=== PATIENT | female | born 1975 | race American Indian/Alaskan Native ===

== ENCOUNTER 2016-08-31 09:30 | Emergency (ER) | payer MEDICAID ==
[2016-08-31 09:45] VITALS: BMI 29.2
[2016-08-31 09:49] VITALS: TEMP 97.7; O2SAT 98
--- NOTE | 2016-08-31 10:03 | ED PDOC ---
Arrival/HPI - General Chief Complaint: Lower Extremity Problem/Injury Time Seen by Provider: 08/31/16 09:38 Historian: Patient - History of Present Illness Narrative History of Present Illness (Text): 08/31/16 09:50 A 40 year old female, who denies any past medical history, presents to the emergency department complaining of right knee pain after hitting her right knee to metal object at home yesterday. Patient reports having knee pain for almost two years now, after a box had fallen on her knee while she had been at work. Patient also notes she hasn't taken pain medications but applies ice on area. Patient denies any other bodily pain, injury or any other complaints at this time. Time/Duration: 24 hours Symptom Onset: Sudden Symptom Course: Unchanged Context: Home Associated Symptoms (Text): none Past Medical History - Provider Review Nursing Documentation Reviewed: Yes - Infectious Disease Hx of Infectious Diseases: None - Psychiatric Hx Substance Use: No - Anesthesia Hx Anesthesia: No Family/Social History - Physician Review Nursing Documentation Reviewed: Yes Family/Social History: No Known Family HX Smoking Status: Never Smoked Hx Alcohol Use: No Hx Substance Use: No Allergies/Home Meds Allergies/Adverse Reactions: Allergies No Known Allergies Allergy (Verified 08/31/16 09:45) Review of Systems - Physician Review All systems were reviewed & negative as marked: Yes - Review of Systems Constitutional: Normal Eyes: Normal ENT: Normal Respiratory: Normal. absent: SOB Cardiovascular: Normal. absent: Chest Pain Gastrointestinal: Normal. absent: Nausea Genitourinary Female: Normal Musculoskeletal: Other (R knee pain) Skin: Normal Neurological: Normal. absent: Headache, Dizziness Endocrine: Normal Hemo/Lymphatic: Normal Psychiatric: Normal Physical Exam Vital Signs Reviewed: Yes Vital Signs Temp Pulse Resp BP Pulse Ox 08/31/16 09:46 97.7 F 73 19 128/90 98 Temperature: Afebrile Blood Pressure: Normal Pulse: Regular Respiratory Rate: Normal Appearance: Positive for: Well-Appearing, Non-Toxic, Comfortable Pain Distress: None Mental Status: Positive for: Alert and Oriented X 3 - Systems Exam Head: Present: Atraumatic, Normocephalic Pupils: Present: PERRL Extroacular Muscles: Present: EOMI Conjunctiva: Present: Normal Mouth: Present: Moist Mucous Membranes Neck: Present: Normal Range of Motion Respiratory/Chest: Present: Clear to Auscultation, Good Air Exchange. No: Respiratory Distress, Accessory Muscle Use Cardiovascular: Present: Regular Rate and Rhythm, Normal S1, S2. No: Murmurs Abdomen: Present: Normal Bowel Sounds. No: Tenderness, Distention, Peritoneal Signs Upper Extremity: Present: Normal Inspection. No: Cyanosis, Edema Lower Extremity: Present: Normal ROM, Other (ecchymosis below patella; tender, little swelling; no laceration/abrasion) Neurological: Present: GCS=15, CN II-XII Intact, Speech Normal Skin: Present: Warm, Dry, Normal Color. No: Rashes Psychiatric: Present: Alert, Oriented x 3, Normal Insight, Normal Concentration Medical Decision Making ED Course and Treatment: 08/31/16 10:00 Impression: A 40 year old female with Right knee pain. Differential Diagnosis include but are not limited to: knee pain r/o fracture and strain Plan: -- Radiology knee w Right patella -- Toradol -- Reassess and disposition Progress Notes: Radiology R knee patella: Creator : Jamie Griggs MD IMPRESSION: Normal radiographs of the right knee. 08/31/16 11:11 Patient's Xray is negative for fracture. Patient did twist her leg but will consider a strain. History provide and exam most consistent with knee contusion. Knee oz wrap applied. Crutches given for support. She will f/u with the clinic. She was also given a referral for orthopedics. - RAD Interpretation Radiology Orders: 08/31/16 09:57 KNEE W PATELLA RIGHT 3 VIEW [RAD] Stat - Medication Orders Current Medication Orders: Discontinued Medications Ketorolac Tromethamine (Toradol) 60 mg IM STAT STA Stop: 08/31/16 09:58 Last Admin: 08/31/16 10:23 Dose: 60 mg - Scribe Statement The provider has reviewed the documentation as recorded by the Scribe Susan Hahn All medical record entries made by the Scribe were at my direction and personally dictated by me. I have reviewed the chart and agree that the record accurately reflects my personal performance of the history, physical exam, medical decision making, and the department course for this patient. I have also personally directed, reviewed, and agree with the discharge instructions and disposition. Disposition/Present on Arrival - Present on Arrival Any Indicators Present on Arrival: No History of DVT/PE: No History of Uncontrolled Diabetes: No Urinary Catheter: No History of Decub. Ulcer: No History Surgical Site Infection Following: None - Disposition Have Diagnosis and Disposition been Completed?: Yes Diagnosis: Knee contusion Disposition: HOME/ ROUTINE Disposition Time: 11:13 Patient Plan: Discharge Patient Problems: Current Active Problems Problem Status Onset Knee contusion Acute Condition: IMPROVED Discharge Instructions (ExitCare): Knee Pain (ED) Additional Instructions: Ms Gee, thank you for letting us take care of you today. Your provider was Dr. Reis You were treated for Knee Contusion. The emergency medical care you received today was directed at your acute symptoms. If you were prescribed any medication, please fill it and take as directed. It may take several days for your symptoms to resolve. Return to the Emergency Department if your symptoms worsen, do not improve, or if you have any other problems. Please contact your doctor or call one of the physicians/clinics you have been referred to that are listed on the Patient Visit Information form that is included in your discharge packet. Bring any paperwork you were given at discharge with you along with any medications you are taking to your follow up visit. Our treatment cannot replace ongoing medical care by a primary care provider (PCP) outside of the emergency department. Thank you for allowing the [facility] team to be part of your care today. If you had an X-Ray or CT scan: A Radiologist will review the ED reading if any change in treatment is needed we will contact you. If you had a blood, urine, or wound culture: It will take several days for the results, if any change in treatment is needed we will contact you. If you had an STI test: It will take 48 hours for the results. Please call after 1 week if you have not heard back. Prescriptions: Naproxen 500 mg PO BID PRN #30 tab PRN Reason: Pain, Moderate (4-7) Referrals: Marisela Avery MD [Staff Provider] - Follow up with primary [facility] [place] [Outside] - Follow up with primary Forms: Air Visits Discharge (Indonesian), WORK NOTE
--- NOTE | 2016-08-31 10:34 | RAD ---
PROCEDURE: Right Knee Radiographs. HISTORY: pain with injury r/o fx COMPARISON: None. FINDINGS: BONES: Normal. No fracture. JOINTS: Normal. No osteoarthritis. JOINT EFFUSION: None. OTHER FINDINGS: None. IMPRESSION: Normal radiographs of the right knee.
[2016-08-31 11:33] VITALS: BP 126/86; PULSE 69; RESP 18
== END 2016-08-31 11:35 | disposition home or self-care (01) ==
LOC: ED 09:30
DX: S80.01XA Contusion of right knee, initial encounter (principal); W22.8XXA Striking against or struck by other objects, initial encounter; Y92.009 Unspecified place in unspecified non-institutional (private) residence as the place of occurrence of the external cause
CPT/HCPCS: 73562; 96372; 99284; J1885

== ENCOUNTER 2016-10-01 09:45 | Emergency (ER) | payer MEDICAID ==
[2016-10-01 09:45] VITALS: BMI 29.2
[2016-10-01 10:14] VITALS: RESP 18; TEMP 98.3; O2SAT 100
[2016-10-01] MEDS ORDERED: Promethazine/Cod 6.25mg-10mg/5ml Syr UD PO STA (10:45)
[2016-10-01] MEDS ORDERED: Albuterol-Ipratrop 3 mg / 0.5 (3 ml) UD IH STA (10:45)
--- NOTE | 2016-10-01 10:46 | ED PDOC ---
Arrival/HPI - General Chief Complaint: Cough, Cold, Congestion Time Seen by Provider: 10/01/16 10:43 Historian: Patient - History of Present Illness Narrative History of Present Illness (Text): 10/01/16 10:43 This 40 yo female presents to this ED c/o cough, congestion, and fever x 7 days. Denies sob, cp, recent travel, sick contact, abdominal pain, dizziness, rash, urinary symptoms, n/v/d, or abnormal gait. Time/Duration: 1 week Context: Home Past Medical History - Provider Review Nursing Documentation Reviewed: Yes - Infectious Disease Hx of Infectious Diseases: None - Psychiatric Hx Substance Use: No - Anesthesia Hx Anesthesia: No Family/Social History - Physician Review Nursing Documentation Reviewed: Yes Family/Social History: No Known Family HX Smoking Status: Never Smoked Hx Alcohol Use: No Hx Substance Use: No Allergies/Home Meds Allergies/Adverse Reactions: Allergies No Known Allergies Allergy (Verified 10/01/16 10:15) Review of Systems - Review of Systems Constitutional: Fevers. absent: Fatigue, Weight Change Eyes: Normal ENT: Normal. absent: Sore Throat, Rhinorrhea Respiratory: Cough. absent: SOB, Sputum, Wheezing Cardiovascular: Normal Gastrointestinal: Normal. absent: Abdominal Pain, Nausea, Vomiting Genitourinary Female: Normal. absent: Dysuria, Frequency, Hematuria, Vaginal Bleeding, Vaginal Discharge Musculoskeletal: absent: Back Pain, Neck Pain, Myalgias Skin: Normal. absent: Rash Neurological: Normal. absent: Headache, Dizziness, Focal Weakness, Gait Changes , Speech Changes Endocrine: Normal Hemo/Lymphatic: Normal Psychiatric: Normal Physical Exam Vital Signs Temp Pulse Resp BP Pulse Ox 10/01/16 12:17 67 18 132/81 100 10/01/16 10:12 98.3 F 69 18 136/86 100 Temperature: Afebrile Blood Pressure: Normal Pulse: Regular Respiratory Rate: Normal Appearance: Positive for: Well-Appearing, Non-Toxic, Comfortable Pain Distress: None Mental Status: Positive for: Alert and Oriented X 3 - Systems Exam Head: Present: Atraumatic, Normocephalic Pupils: Present: PERRL Extroacular Muscles: Present: EOMI Conjunctiva: Present: Normal Mouth: Present: Moist Mucous Membranes Pharnyx: Present: Normal. No: ERYTHEMA, EXUDATE, TONSILS ENLARGED Neck: Present: Normal Range of Motion. No: Meningeal Signs Respiratory/Chest: Present: Clear to Auscultation, Good Air Exchange. No: Respiratory Distress, Accessory Muscle Use, Wheezes, Decreased Breath Sounds, Rales, Retracting, Rhonchi Cardiovascular: Present: Regular Rate and Rhythm, Normal S1, S2. No: Murmurs Abdomen: Present: Normal Bowel Sounds. No: Tenderness, Distention, Peritoneal Signs Back: Present: Normal Inspection. No: CVA Tenderness Upper Extremity: Present: Normal Inspection, Normal ROM, NORMAL PULSES, Neurovascularly Intact, Capillary Refill < 2s. No: Cyanosis, Edema Lower Extremity: Present: Normal Inspection, NORMAL PULSES, Normal ROM, Capillary Refill < 2 s. No: Edema, CALF TENDERNESS Neurological: Present: GCS=15, CN II-XII Intact, Speech Normal, Motor Func Grossly Intact, Normal Sensory Function, Normal Cerebellar Funct, Gait Normal Skin: Present: Warm, Dry, Normal Color. No: Rashes Psychiatric: Present: Alert, Oriented x 3, Normal Insight, Normal Concentration Medical Decision Making ED Course and Treatment: 10/01/16 12:05 Re-evaluation. Patient feels better. Discussed results and plan with patient who expresses understanding. All questions answered and there is agreement with the plan to discharge home with instructions. Patient stable for discharge. Return if symptoms persist or worsen Patient was treated with Duoneb, and cough medication. Patient requested Medrol dose pack because she has had this medication in the past, and it helps relief her symptoms. Patient was explained the side effects if she takes Medrol Dose Pack, including AVN, DM, osteoporosis, adrenal gland complication, liver disease, glaucoma. She still insisted to have Medrol Dose Pack. She also requested a Z-Pack. Re-evaluation Time: 12:05 Reassessment Condition: Re-examined, Improved - RAD Interpretation Narrative RAD Interpretations (Text): 10/01/16 12:05 Chest x-rays: NAD Radiology Orders: 10/01/16 10:44 CHEST TWO VIEWS (PA/LAT) [RAD] Stat - Medication Orders Current Medication Orders: Discontinued Medications Albuterol/Ipratropium (Duoneb 3 Mg/0.5 Mg (3 Ml) Ud) 3 ml IH STAT STA Stop: 10/01/16 10:46 Last Admin: 10/01/16 11:05 Dose: 3 ml Promethazine HCl/Codeine (Phenergan/Codeine Oral Syrup) 5 ml PO STAT STA Stop: 10/01/16 10:46 Last Admin: 10/01/16 11:06 Dose: 5 ml Disposition/Present on Arrival - Present on Arrival Any Indicators Present on Arrival: No History of DVT/PE: No History of Uncontrolled Diabetes: No Urinary Catheter: No History of Decub. Ulcer: No History Surgical Site Infection Following: None - Disposition Have Diagnosis and Disposition been Completed?: Yes Diagnosis: Upper respiratory infection Disposition: HOME/ ROUTINE Disposition Time: 12:06 Patient Plan: Discharge Condition: GOOD Discharge Instructions (ExitCare): Upper Respiratory Infection (ED) Additional Instructions: Call private doctor for follow up visit in 1-2 days. Take medication as instructed. Take antibiotic as requested only if symptoms worsen or persists. Return to emergency if symptoms worsen. Prescriptions: Albuterol HFA [Ventolin HFA 90 mcg/actuation (8 g)] 2 puff IH [id number] PRN #120 puff PRN Reason: Wheezing Azithromycin [Z-Aayush] 250 mg PO DAILY #6 tab Methylprednisolone [Medrol Dose Pack (21 tabs)] 4 mg PO DAILY #21 mg Promethazine/Codeine [Codeine/Promethazine 10 MG/5 Ml-6.25 MG/5 Ml] 5 ml PO Q6H PRN #90 ml PRN Reason: Cough Referrals: PCP,NO [Primary Care Provider] - Follow up with primary [facility] [Outside] - Follow up with primary [facility] [Outside] - Follow up with primary Forms: WORK NOTE
[2016-10-01 12:19] VITALS: BP 132/81; PULSE 67
--- NOTE | 2016-10-01 12:32 | RAD ---
HISTORY: cough COMPARISON: No prior. TECHNIQUE: Chest PA and lateral FINDINGS: LUNGS: No active pulmonary disease. PLEURA: No significant pleural effusion identified. No pneumothorax apparent. CARDIOVASCULAR: Normal. OSSEOUS STRUCTURES: No significant abnormalities. VISUALIZED UPPER ABDOMEN: Normal. OTHER FINDINGS: None. IMPRESSION: No active disease.
== END 2016-10-01 12:19 | disposition home or self-care (01) ==
LOC: ED 09:45
DX: J06.9 Acute upper respiratory infection, unspecified (principal)

== ENCOUNTER 2017-03-26 20:59 | Emergency (ER) | payer MEDICAID ==
[2017-03-26 20:59] VITALS: BMI 29.2
[2017-03-26 21:17] VITALS: TEMP 98.4; O2SAT 100
[2017-03-26] MEDS ORDERED: Sodium Chloride 0.9% 1,000 ML IV STA (21:35)
[2017-03-26 22:07] LABS: BASO # 0.03 K/mm3 (0.0-2.0); BASO % 0.6 % (0.0-3.0); EOS # 0.1 (0.0-0.7); EOS % 1.3 % (1.5-5.0); GRAN # 3.07 (1.4-6.5); GRAN % 65.3 % (50.0-68.0); HEMATOCRIT 26.7 % (36.0-48.0); LYMPH # 1.3 (1.2-3.4); LYMPH % 27.9 % (22.0-35.0); MEAN CELL VOLUME 79.7 fl (80.0-105.0); MEAN CORPUSCULAR HEMOGLOBIN 24.8 pg (25.0-35.0); MEAN CORPUSCULAR HGB CONC 31.1 g/dl (31.0-37.0); MONO # 0.2 (0.1-0.6); MONO % 4.9 % (1.0-6.0); PLATELET COUNT 149 10^3/uL (120.0-450.0); RED CELL DISTRIBUTION WIDTH 16.1 % (11.5-14.5); WHITE BLOOD COUNT 4.7 10^3/ul (4.5-11.0)
[2017-03-26 22:19] LABS: ALB/GLOB RATIO 1.4 (1.1-1.8); ALKALINE PHOSPHATASE 49 U/L (38-126); ALT/SGPT 29 U/L (7-56); AST/SGOT 43 U/L (14-36); BILIRUBIN,TOTAL 0.5 mg/dL (0.2-1.3); BLOOD UREA NITROGEN 11 mg/dL (7-21); CARBON DIOXIDE 27 mmol/L (21-33); CHLORIDE 107 mmol/L (98-107); GFR AFRICAN-AMERICAN > 60; GLUCOSE,RANDOM 90 mg/dL (70-110); LIPASE 49 U/L (23-300); POTASSIUM 3.1 mmol/L (3.6-5.0); SODIUM 139 mmol/L (132-148); TOTAL PROTEIN 6.2 g/dL (5.8-8.3)
[2017-03-26 22:27] LABS: PH,URINE 5.5 (4.7-8.0); URINE BILIRUBIN NEGATIVE (NEGATIVE); URINE BLOOD NEGATIVE (NEGATIVE); URINE GLUCOSE (UA) NEGATIVE (NEGATIVE); URINE KETONE 15 mg/dL (NEGATIVE); URINE LEUKOCYTE ESTERASE SMALL Leu/uL (NEGATIVE); URINE PROTEIN 30 mg/dL (<30 mg/dL)
[2017-03-26 22:28] LABS: URINE APPEARANCE SLIGHT-CLOUDY (CLEAR); URINE COLOR DARK YELLOW (YELLOW)
[2017-03-26 22:29] LABS: INR 1.22 (0.93-1.08); PARTIAL THROMBOPLASTIN TIME 29.2 Seconds (25.1-36.5)
[2017-03-26] MEDS ORDERED: Iohexol 350 MG/100 ML VIAL ONE (22:36)
[2017-03-26 22:52] LABS: URINE BACTERIA MANY (NEG); URINE RBC 0 - 2 /hpf (0-2)
[2017-03-26 22:53] LABS: URINE AMORPHOUS SEDIMENT FEW
--- NOTE | 2017-03-26 23:17 | CT ---
EXAM: CT Abdomen and Pelvis With Intravenous Contrast CLINICAL HISTORY: 41 years old, female; Pain; Abdominal pain; Other: Luq abdominal pain TECHNIQUE: Axial computed tomography images of the abdomen and pelvis with intravenous contrast. All CT scans at this facility use one or more dose reduction techniques, viz.: automated exposure control; ma/kV adjustment per patient size (including targeted exams where dose is matched to indication; i.e. head); or iterative reconstruction technique. MIP reconstructed images were created and reviewed. Coronal and sagittal reformatted images were created and reviewed. CONTRAST: 100 mL of [id number] administered intravenously. COMPARISON: No relevant prior studies available. FINDINGS: Lower thorax: The bilateral lung bases are clear. ABDOMEN: Liver: No acute findings. Gallbladder and bile ducts: The gallbladder is decompressed. No calcified stones. No significant intra- or extrahepatic biliary ductal dilation. Pancreas: Enhances homogeneously. No ductal dilation. No discrete mass. Spleen: No acute findings. Adrenals: No acute findings. Kidneys and ureters: No acute findings. No hydronephrosis or renal calculi. No discrete solid mass. PELVIS: Bladder: No acute findings. Reproductive: An involuting cyst is identified within the right ovary measuring 23 mm in greatest dimension. Appendix: The air filled appendix is of normal caliber (series 2, image 120; series 602, image 19) . ABDOMEN and PELVIS: Stomach and bowel: No obstruction. Small bowel wall thickening within the left mid to upper quadrant without surrounding inflammation or fluid to confirm an acute enteritis. Peritoneum: As above. Lymph nodes: No pathologically enlarged lymph nodes. Vasculature: Unremarkable. Bones: No acute fracture. IMPRESSION: Mural thickening within multiple loops of bowel within the left mid to upper quadrant without surrounding inflammation or fluid to confirm an acute enteritis.
--- NOTE | 2017-03-26 23:23 | ED PDOC ---
Arrival/HPI <Yoav Clark - Last Filed: 03/26/17 23:27> - General Historian: Patient <Ebony rowland - Last Filed: 03/28/17 20:46> - General Chief Complaint: Abdominal Pain Time Seen by Provider: 03/26/17 21:28 - History of Present Illness Narrative History of Present Illness (Text): 03/26/17 23:19 41yo female who present with complaint of worsening LUQ abdominal pain x 2days. States pain started radiating to her left sided back with nausea. She denies vomiting, diarrhea, constipation, fever, chills, urinary symptoms, sick contact , travel, any other complaint. (Ebony Gotti A) Past Medical History - Provider Review Nursing Documentation Reviewed: Yes - Infectious Disease Hx of Infectious Diseases: None - Psychiatric Hx Substance Use: No - Anesthesia Hx Anesthesia: No <ShenEbony Borrero - Last Filed: 03/28/17 20:46> Family/Social History - Physician Review Nursing Documentation Reviewed: Yes Family/Social History: Unknown Family HX Smoking Status: Never Smoked Hx Alcohol Use: No Hx Substance Use: No <ShenEbony A - Last Filed: 03/28/17 20:46> Allergies/Home Meds <Yoav Clark - Last Filed: 03/26/17 23:27> <ShenEbony Borrero - Last Filed: 03/28/17 20:46> Allergies/Adverse Reactions: Allergies No Known Allergies Allergy (Verified 10/01/16 10:15) Review of Systems - Physician Review All systems were reviewed & negative as marked: Yes - Review of Systems Constitutional: Normal Eyes: Normal ENT: Normal Respiratory: Normal Cardiovascular: Normal Gastrointestinal: Abdominal Pain, Nausea. absent: Constipation, Diarrhea, Vomiting, Hematochezia, Hematemesis Genitourinary Female: Normal Musculoskeletal: Normal Skin: Normal Neurological: Normal Endocrine: Normal Hemo/Lymphatic: Normal Psychiatric: Normal <ShenEbony Borrero - Last Filed: 03/28/17 20:46> Physical Exam Vital Signs Reviewed: Yes Temperature: Afebrile Blood Pressure: Normal Pulse: Regular Respiratory Rate: Normal Appearance: Positive for: Well-Appearing, Non-Toxic, Comfortable Pain Distress: None Mental Status: Positive for: Alert and Oriented X 3 - Systems Exam Head: Present: Atraumatic, Normocephalic Pupils: Present: PERRL Extroacular Muscles: Present: EOMI Conjunctiva: Present: Normal Mouth: Present: Moist Mucous Membranes Neck: Present: Normal Range of Motion Respiratory/Chest: Present: Clear to Auscultation, Good Air Exchange. No: Respiratory Distress, Accessory Muscle Use Cardiovascular: Present: Regular Rate and Rhythm, Normal S1, S2. No: Murmurs Abdomen: Present: Tenderness (LUQ), Normal Bowel Sounds, Other (Soft). No: Distention, Peritoneal Signs, Rebound, Guarding, McBurney's Point Tender, Rovsing's Sign Present Back: Present: Normal Inspection Upper Extremity: Present: Normal Inspection. No: Cyanosis, Edema Lower Extremity: Present: Normal Inspection. No: Edema Neurological: Present: GCS=15, CN II-XII Intact, Speech Normal Skin: Present: Warm, Dry, Normal Color. No: Rashes Psychiatric: Present: Alert, Oriented x 3, Normal Insight, Normal Concentration <Ebony Gotti A - Last Filed: 03/28/17 20:46> Vital Signs Temp Pulse Resp BP Pulse Ox 03/27/17 00:24 55 L 16 116/64 100 03/26/17 23:58 60 18 109/74 100 03/26/17 23:00 60 18 109/79 100 03/26/17 21:15 98.4 F 71 16 116/77 100 Medical Decision Making <Yoav Clark - Last Filed: 03/26/17 23:27> <Ebony Gotti A - Last Filed: 03/28/17 20:46> ED Course and Treatment: 03/28/17 20:42 Pt's pain improved in ED. Her lab was nonspecific. Pt have history of anemia and was suppose to be on iron medication, but doesn't take it. She was advised to take the iron medication. Abdominal CT - IMPRESSION: Mural thickening within multiple loops of bowel within the left mid to upper quadrant without surrounding inflammation or fluid to confirm an acute enteritis. Result was DW the pt. she have no N/V/D. she was DC home with macrobid for UTI. Referred to her PMD. TRT ED for any new or worsening symptoms. (Ebony Gotti A) - Lab Interpretations Microbiology Results: Microbiology Results 03/26/17 22:00 Urine,Clean Catch Urine Culture - Final 10-50,000 CFU/ML. MULTIPLE SPECIES. PROBABLE CONTAMINATION. Lab Results: 03/26/17 21:45 03/26/17 21:45 Lab Results 03/26/17 22:00: Urine Color Dark yellow, Urine Appearance Slight-cloudy, Urine pH 5.5, Ur Specific [place] >= 1.030, Urine Protein 30 H, Urine Glucose (UA) Negative, Urine Ketones 15 H, Urine Blood Negative, Urine Nitrate Negative, Urine Bilirubin Negative, Urine Urobilinogen 1.0 H, Ur Leukocyte Esterase Small H, Urine RBC 0 - 2, Urine WBC 5 - 10, Ur Epithelial Cells 6 - 8, Amorphous Sediment Few, Urine Bacteria Many, Hyaline Casts 0 - 2, Fine Granular Casts 0 - 2, Urine Other Uyeast 03/26/17 21:45: Sodium 139, Potassium 3.1 L, Chloride 107, Carbon Dioxide 27, Anion Gap 8 L, BUN 11, Creatinine 0.7, Est GFR ( Amer) > 60, Est GFR (Non -Af Amer) > 60, Random Glucose 90, Calcium 9.0, Total Bilirubin 0.5, AST 43 H, ALT 29, Alkaline Phosphatase 49, Total Protein 6.2, Albumin 3.6, Globulin 2.6, Albumin/Globulin Ratio 1.4, Lipase 49 03/26/17 21:45: PT 13.3 H, INR 1.22 H, APTT 29.2 03/26/17 21:45: WBC 4.7, RBC 3.35 L, Hgb 8.3 L, Hct 26.7 L, MCV 79.7 L, MCH 24.8 L, MCHC 31.1, RDW 16.1 H, Plt Count 149, Gran % 65.3, Lymph % (Auto) 27.9, [place] % (Auto) 4.9, Eos % (Auto) 1.3 L, Baso % (Auto) 0.6, Gran # 3.07, Lymph # 1.3, [place] # 0.2, Eos # 0.1, Baso # 0.03 - RAD Interpretation Radiology Orders: 03/26/17 21:36 ABD & PELVIS IV CONTRAST ONLY [CT] Stat - Medication Orders Current Medication Orders: Discontinued Medications Cephalexin Monohydrate (Keflex) 500 mg PO STAT STA PRN Reason: Protocol Stop: 03/26/17 23:28 Last Admin: 03/26/17 23:59 Dose: 500 mg Famotidine (Pepcid) 20 mg IVP STAT STA Stop: 03/26/17 21:36 Last Admin: 03/26/17 22:06 Dose: 20 mg IVP Administration Document 03/26/17 22:06 YP (Rec: 03/26/17 22:06 YP [id number]) Charges for Administration # of IVP Administrations 1 Sodium Chloride (Sodium Chloride 0.9%) 1,000 mls @ 1,000 mls/hr IV .Q1H STA Stop: 03/26/17 22:34 Last Admin: 03/26/17 21:51 Dose: 1,000 mls/hr eMAR Start Stop Document 03/26/17 21:51 YP (Rec: 03/26/17 21:51 Y[id number] Intravenous Solution Start Date 03/26/17 Start Time 21:51 End Date 03/26/17 End time 22:51 Total Infusion Time 60 Ketorolac Tromethamine (Toradol) 30 mg IVP STAT STA Stop: 03/26/17 21:36 Last Admin: 03/26/17 22:05 Dose: 30 mg MAR Pain Assessment Document 03/26/17 22:05 YP (Rec: 03/26/17 22:05 YP [id number]) Pain Reassessment Is this a pain reassessment? No Sleep Is patient sleeping during reassessment? No Presence of Pain Presence of Pain Yes IVP Administration Document 03/26/17 22:05 YP (Rec: 03/26/17 22:05 YP [id number]) Charges for Administration # of IVP Administrations 1 Re-Assess: MAR Pain Assessment Document 03/26/17 23:05 YP (Rec: 03/26/17 23:30 YP [id number]) Pain Reassessment Is this a pain reassessment? Yes Sleep Is patient sleeping during reassessment? No Presence of Pain Presence of Pain No Morphine Sulfate (Morphine) 2 mg IVP STAT STA Stop: 03/26/17 23:52 Last Admin: 03/26/17 23:59 Dose: 2 mg MAR Pain Assessment Document 03/26/17 23:59 YP (Rec: 03/26/17 23:59 YP [id number]) Pain Reassessment Is this a pain reassessment? Yes Sleep Is patient sleeping during reassessment? No Presence of Pain Presence of Pain Yes IVP Administration Document 03/26/17 23:59 YP (Rec: 03/26/17 23:59 YP [id number]) Charges for Administration # of IVP Administrations 1 Ondansetron HCl (Zofran Inj) 4 mg IVP STAT STA Stop: 03/26/17 21:36 Last Admin: 03/26/17 22:05 Dose: 4 mg IVP Administration Document 03/26/17 22:05 YP (Rec: 03/26/17 22:05 YP [id number]) Charges for Administration # of IVP Administrations 1 - PA / INSPECTOR POISING / Resident Statement / has reviewed & agrees with the documentation as recorded. <Yoav Clark - Last Filed: 03/26/17 23:27> Disposition/Present on Arrival <Yoav Clark - Last Filed: 03/26/17 23:27> - Present on Arrival Any Indicators Present on Arrival: No History of DVT/PE: No History of Uncontrolled Diabetes: No Urinary Catheter: No History of Decub. Ulcer: No History Surgical Site Infection Following: None - Disposition Have Diagnosis and Disposition been Completed?: Yes Disposition Time: 02:00 Patient Plan: Discharge <Ebony Gotti - Last Filed: 03/28/17 20:46> - Disposition Diagnosis: Abdominal pain, UTI (urinary tract infection), Anemia Disposition: HOME/ ROUTINE Condition: STABLE Discharge Instructions (ExitCare): Urinary Tract Infection in Women (ED), Abdominal Pain (ED) Additional Instructions: follow up with your doctor/clinic Drink plenty of fluid Return to ED for any new or worsening symptoms Prescriptions: Cephalexin [Keflex] 500 mg PO QID #28 capsule Famotidine [Pepcid] 40 mg PO DAILY #15 tab Ferrous Sulfate [Feosol] 325 mg PO BID #30 tab Ibuprofen [Motrin Tab] 600 mg PO Q6 #15 tab Ondansetron ODT [Zofran ODT] 4 mg PO Q6 #7 odt Referrals: PCP,NO [Primary Care Provider] - Follow up with primary [facility] [place] [Outside] - Follow up with primary Forms: [employer] (Sinhala)
[2017-03-26] MEDS ORDERED: Morphine 2 mg/ml ISec IVP STA (23:51)
[2017-03-27 00:25] VITALS: BP 116/64; PULSE 55; RESP 16
== END 2017-03-27 00:30 | disposition home or self-care (01) ==
LOC: ED 20:59
DX: N39.0 Urinary tract infection, site not specified (principal); R10.9 Unspecified abdominal pain; D64.9 Anemia, unspecified
CPT/HCPCS: 74177; 80053; 81001; 83690; 85025; 85610; 85730; 87086; 96361; 96374; 96375; 99284; J1885; J2270; J2405; J7040; Q9967

== ENCOUNTER 2017-07-05 09:42 | Emergency (ER) | payer MEDICAID ==
[2017-07-05 10:07] VITALS: RESP 18; TEMP 98.8; BMI 25.7
[2017-07-05] MEDS ORDERED: Sodium Chloride 0.9% 1,000 ML IV STA (10:14)
--- NOTE | 2017-07-05 10:20 | ED PDOC ---
Arrival/HPI - General Chief Complaint: Female Genitourinary Time Seen by Provider: 07/05/17 09:44 Historian: Patient - History of Present Illness Narrative History of Present Illness (Text): 07/05/17 10:17 41yo female with PMhx of anemia who present with 2weeks of diffuse crampy abdominal pain, "gassy", and vaginal discharge. she report loose BM x 4days now. +Nausea. Describes vaginal discharge as frothy whitish discharge. States is similar to her previous discharge when she had BV. States she was taking Parsley tea to help with the infection. Denies vomiting, fever, chills, melena, hematemesis, urinary frequency, dysuria, back pain, sick contact, travel, any other complaint. Past Medical History - Provider Review Nursing Documentation Reviewed: Yes - Infectious Disease Hx of Infectious Diseases: None - Pulmonary Hx Respiratory Disorders: No - Neurological Hx Neurological Disorder: No - HEENT Hx HEENT Disorder: No - Renal Hx Renal Disorder: No - Hematological/Oncological Hx Blood Disorders: Yes Hx Anemia: Yes - Psychiatric Hx Substance Use: No - Surgical History Hx Tubal Ligation: Yes - Anesthesia Hx Anesthesia: Yes Hx Anesthesia Reactions: No Hx Malignant Hyperthermia: No Family/Social History - Physician Review Nursing Documentation Reviewed: Yes Family/Social History: Unknown Family HX Smoking Status: Never Smoked Hx Alcohol Use: Yes Frequency of alcohol use: Socially Hx Substance Use: No Allergies/Home Meds Allergies/Adverse Reactions: Allergies No Known Allergies Allergy (Verified 07/05/17 10:04) Review of Systems - Physician Review All systems were reviewed & negative as marked: Yes - Review of Systems Constitutional: Normal Eyes: Normal ENT: Normal Respiratory: Normal Cardiovascular: Normal Gastrointestinal: Abdominal Pain, Nausea. absent: Constipation, Diarrhea, Vomiting, Hematochezia, Hematemesis Genitourinary Female: Vaginal Discharge. absent: Dysuria, Frequency Musculoskeletal: Normal Skin: Normal Neurological: Normal Endocrine: Normal Hemo/Lymphatic: Normal Psychiatric: Normal Physical Exam Vital Signs Reviewed: Yes Vital Signs Temp Pulse Resp BP Pulse Ox 07/05/17 12:28 64 18 104/69 100 07/05/17 11:30 65 18 102/68 99 07/05/17 09:57 98.8 F 60 18 100/64 99 Temperature: Afebrile Blood Pressure: Normal Pulse: Regular Respiratory Rate: Normal Appearance: Positive for: Well-Appearing, Non-Toxic, Comfortable Pain Distress: None Mental Status: Positive for: Alert and Oriented X 3 - Systems Exam Head: Present: Atraumatic, Normocephalic Pupils: Present: PERRL Extroacular Muscles: Present: EOMI Conjunctiva: Present: Normal Mouth: Present: Moist Mucous Membranes Neck: Present: Normal Range of Motion Respiratory/Chest: Present: Clear to Auscultation, Good Air Exchange. No: Respiratory Distress, Accessory Muscle Use Cardiovascular: Present: Regular Rate and Rhythm, Normal S1, S2. No: Murmurs Abdomen: Present: Normal Bowel Sounds, Other (Soft). No: Tenderness, Distention , Peritoneal Signs, Rebound, Guarding, McBurney's Point Tender, Rovsing's Sign Present Genitourinary/Pelvic Exam: Present: Vaginal Discharge (Frothy light white discharge noted on vaginal vault). No: Cervical Motion Tendernes, Odor Back: Present: Normal Inspection. No: CVA Tenderness Upper Extremity: Present: Normal Inspection. No: Cyanosis, Edema Lower Extremity: Present: Normal Inspection. No: Edema Neurological: Present: GCS=15, CN II-XII Intact, Speech Normal Skin: Present: Warm, Dry, Normal Color. No: Rashes Psychiatric: Present: Alert, Oriented x 3, Normal Insight, Normal Concentration Medical Decision Making - Lab Interpretations Lab Results: 07/05/17 10:52 07/05/17 10:52 Lab Results 07/05/17 11:39: Urine Color Yellow, Urine Appearance Clear, Urine pH 6.0, Ur Specific [place] 1.020, Urine Protein Negative, Urine Glucose (UA) Negative, Urine Ketones Negative, Urine Blood Negative, Urine Nitrate Negative, Urine Bilirubin Negative, Urine Urobilinogen 0.2, Ur Leukocyte Esterase Trace H, Urine RBC 0 - 2, Urine WBC 2 - 5, Ur Epithelial Cells 6 - 8, Urine Bacteria Small 07/05/17 10:52: Sodium 141, Potassium 3.7, Chloride 110 H, Carbon Dioxide 24, Anion Gap 10, BUN 12, Creatinine 0.7, Est GFR ( Amer) > 60, Est GFR (Non- Af Amer) > 60, Random Glucose 87, Calcium 9.2, Total Bilirubin 0.4, AST 30, ALT 26, Alkaline Phosphatase 59, Total Protein 6.5, Albumin 3.7, Globulin 2.8, Albumin/Globulin Ratio 1.3, Lipase 41 07/05/17 10:52: PT 12.1, INR 1.05, APTT 29.2 07/05/17 10:52: WBC 3.0 L D, RBC 3.53, Hgb 8.1 L, Hct 26.6 L, MCV 75.4 L D, MCH 22.9 L, MCHC 30.5 L, RDW 16.8 H, Plt Count 135, Gran % 59.6, Lymph % (Auto) 31.9 , [place] % (Auto) 4.4, Eos % (Auto) 3.1, Baso % (Auto) 1.0, Gran # 1.76, Lymph # ( Auto) 0.9 L, [place] # (Auto) 0.1, Eos # (Auto) 0.1, Baso # (Auto) 0.03 - Medication Orders Current Medication Orders: Discontinued Medications Famotidine (Pepcid) 20 mg IVP STAT STA Stop: 07/05/17 10:15 Last Admin: 07/05/17 11:46 Dose: 20 mg IVP Administration Document 07/05/17 11:46 [email or web address] (Rec: 07/05/17 11:[id number]) Charges for Administration # of IVP Administrations 1 Sodium Chloride (Sodium Chloride 0.9%) 1,000 mls @ 1,000 mls/hr IV .Q1H STA Stop: 07/05/17 11:13 Last Admin: 07/05/17 11:46 Dose: 1,000 mls/hr eMAR Start Stop Document 07/05/17 11:46 [email or web address] (Rec: 07/05/17 11:[id number]) Intravenous Solution Start Date 07/05/17 Start Time 11:46 End Date 07/05/17 Ondansetron HCl (Zofran Inj) 4 mg IVP STAT STA Stop: 07/05/17 10:15 Last Admin: 07/05/17 11:46 Dose: 4 mg IVP Administration Document 07/05/17 11:46 [email or web address] (Rec: 07/05/17 11:[id number]) Charges for Administration # of IVP Administrations 1 Disposition/Present on Arrival - Present on Arrival Any Indicators Present on Arrival: No History of DVT/PE: No History of Uncontrolled Diabetes: No Urinary Catheter: No History of Decub. Ulcer: No History Surgical Site Infection Following: None - Disposition Have Diagnosis and Disposition been Completed?: Yes Diagnosis: UTI (urinary tract infection), Vaginitis Disposition: HOME/ ROUTINE Disposition Time: 12:35 Patient Plan: Discharge Condition: STABLE Discharge Instructions (ExitCare): Bacterial Vaginosis, Urinary Tract Infections in Adults Additional Instructions: Take medication as directed and follow up with your doctor Return to ED for any new or worsening symptoms Prescriptions: Ciprofloxacin [Cipro] 500 mg PO BID #14 tab Famotidine [Pepcid] 40 mg PO DAILY #15 tab metroNIDAZOLE [Flagyl] 500 mg PO BID #14 tab Referrals: PCP,NO [Primary Care Provider] - Follow up with primary [facility] at [facility] [Outside] - Follow up with primary Forms: [employer] (Somali)
[2017-07-05 11:11] LABS: ALB/GLOB RATIO 1.3 (1.1-1.8); ALBUMIN 3.7 g/dL (3.0-4.8); ALT/SGPT 26 U/L (7-56); AST/SGOT 30 U/L (14-36); BLOOD UREA NITROGEN 12 mg/dL (7-21); CALCIUM 9.2 mg/dL (8.4-10.5); GFR AFRICAN-AMERICAN > 60; GFR NON-AFRICAN AMERICAN > 60; LIPASE 41 U/L (23-300)
[2017-07-05 11:12] LABS: BASO # 0.03 K/mm3 (0.0-2.0); EOS # 0.1 (0.0-0.7); EOS % 3.1 % (1.5-5.0); GRAN # 1.76 (1.4-6.5); GRAN % 59.6 % (50.0-68.0); HEMOGLOBIN 8.1 g/dL (12.0-16.0); LYMPH # 0.9 (1.2-3.4); LYMPH % 31.9 % (22.0-35.0); MEAN CELL VOLUME 75.4 fl (80.0-105.0); MEAN CORPUSCULAR HEMOGLOBIN 22.9 pg (25.0-35.0); MEAN CORPUSCULAR HGB CONC 30.5 g/dl (31.0-37.0); MONO # 0.1 (0.1-0.6); MONO % 4.4 % (1.0-6.0); RBC 3.53 10^6/uL (3.5-6.1); RED CELL DISTRIBUTION WIDTH 16.8 % (11.5-14.5)
[2017-07-05 11:13] LABS: INR 1.05 (0.93-1.08); PROTHROMBIN TIME 12.1 SECONDS (9.4-12.5)
[2017-07-05 11:14] LABS: PARTIAL THROMBOPLASTIN TIME 29.2 Seconds (25.1-36.5)
[2017-07-05 11:35] LABS: PLATELET COUNT 135 10^3/uL (120.0-450.0)
[2017-07-05 12:03] LABS: URINE BILIRUBIN NEGATIVE (NEGATIVE); URINE BLOOD NEGATIVE (NEGATIVE); URINE GLUCOSE (UA) NEGATIVE (NEGATIVE); URINE LEUKOCYTE ESTERASE TRACE Leu/uL (NEGATIVE); URINE PROTEIN NEGATIVE mg/dL (<30 mg/dL); URINE UROBILINOGEN 0.2 E.U./dL (<1 E.U./dL)
[2017-07-05 12:04] LABS: URINE APPEARANCE CLEAR (CLEAR); URINE COLOR YELLOW (YELLOW)
[2017-07-05 12:15] LABS: URINE BACTERIA SMALL (NEG); URINE RBC 0 - 2 /hpf (0-2)
[2017-07-05 12:29] VITALS: BP 104/69; PULSE 64
[2017-07-05] MEDS ORDERED: Alum-Mag Hydrox-Simethicone Susp (30 mL) PO STA (12:52)
[2017-07-05 13:11] VITALS: O2SAT 99
== END 2017-07-05 13:11 | disposition home or self-care (01) ==
LOC: ED 09:42
DX: N76.0 Acute vaginitis (principal); N39.0 Urinary tract infection, site not specified; D64.9 Anemia, unspecified
CPT/HCPCS: 80053; 81001; 83690; 85025; 85610; 85730; 87086; 87491; 87591; 96374; 96375; 99283; J2405; J7040